=== PATIENT | male | born 1990 | race Caucasian/White ===

== ENCOUNTER 2021-11-11 08:45 | Emergency (ER) | payer MEDICAID ==
[~2021-11-11] VITALS: Ht 177.8 cm; Wt 77.0 kg
[~2021-11-11 08:45] MED LIST: NORCO10T PO; OXYC-658 PO
[2021-11-11 08:48] VITALS: BP 131/80
== END 2021-11-11 09:45 | disposition home or self-care (01) ==
LOC: ER 08:46
DX: F41.9 Anxiety disorder, unspecified (principal); G89.29 Other chronic pain; Z72.89 Other problems related to lifestyle; Z56.0 Unemployment, unspecified; Z79.899 Other long term (current) drug therapy
CPT/HCPCS: 99281

== ENCOUNTER 2021-11-23 16:13 | Emergency (ER) | payer MEDICAID ==
[~2021-11-23] VITALS: Ht 177.8 cm; Wt 77.3 kg
[2021-11-23 16:27] VITALS: BP 117/87
== END 2021-11-23 16:40 | disposition home or self-care (01) ==
LOC: ER 16:14
DX: R10.9 Unspecified abdominal pain (principal); Z00.00 Encounter for general adult medical examination without abnormal findings; G89.29 Other chronic pain; M54.9 Dorsalgia, unspecified; Z56.0 Unemployment, unspecified
CPT/HCPCS: 99282

== ENCOUNTER 2021-11-25 18:36 | Emergency (ER) | payer MEDICAID ==
--- NOTE | 2021-11-25 19:43 | NUR ---
PATIENTS GRANDMOTHER STATES THEY DON'T WANT TO WAIT, THEY WILL FOLLOW UP WITH ORTHOPAEDIC DOCTOR. (THE CHILD HAD REMOVED HER OWN CAST.) NO DISTRESS.
== END 2021-11-26 03:05 | disposition left against medical advice (07) ==
LOC: ER 18:37
DX: R10.9 Unspecified abdominal pain (principal); Z53.21 Procedure and treatment not carried out due to patient leaving prior to being seen by health care provider

== ENCOUNTER 2021-12-14 16:13 | Emergency (ER) | payer MEDICAID ==
[~2021-12-14] VITALS: Ht 172.7 cm; Wt 75.0 kg
[2021-12-14 16:24] VITALS: BP 117/66
== END 2021-12-14 18:21 | disposition home or self-care (01) ==
LOC: ER 16:14
DX: R10.9 Unspecified abdominal pain (principal); G89.29 Other chronic pain; M54.9 Dorsalgia, unspecified; Z59.00 Homelessness unspecified
CPT/HCPCS: 99281

== ENCOUNTER 2022-07-29 00:04 | Emergency (ER) | payer MEDICAID ==
[~2022-07-29] VITALS: Ht 177.8 cm; Wt 86.4 kg
[~2022-07-29 00:04] MED LIST changes: +ESCI-8 PO; +NO HOME MEDS; -NORCO10T PO; -OXYC-658 PO; +RISP0.5T65 PO; +TRAZ-251 PO
[2022-07-29 00:10] VITALS: BP 116/70
[2022-07-29] MEDS ORDERED: proparacaine 0.5% ophthalmic drops 15ml LEFTEYE ONE (00:30)
== END 2022-07-29 00:57 | disposition home or self-care (01) ==
LOC: ER 00:06
DX: S00.12XA Contusion of left eyelid and periocular area, initial encounter (principal); F17.210 Nicotine dependence, cigarettes, uncomplicated; Z56.0 Unemployment, unspecified; Y99.8 Other external cause status; X58.XXXA Exposure to other specified factors, initial encounter; Y92.89 Other specified places as the place of occurrence of the external cause; Y93.89 Activity, other specified
CPT/HCPCS: 99283